=== PATIENT | female | born 1985 | race Two or more races ===

== ENCOUNTER 2025-01-24 05:43 | Emergency (ER) | payer MEDICAID, OTHER ==
[~2025-01-24] VITALS: Ht 162.6 cm; Wt 66.0 kg
--- NOTE | 2025-01-24 06:48 | ED.PDOC ---
History of Present Illness HPI Comments A 31-YEAR-OLD FEMALE WITH A PRIOR PROCEDURE DONE APPOINTMENT [facility] PRESENTS TO THE ED WITH A C/C OF ABNORMAL VAGINAL BLEEDING. PATIENT STATES THAT SHE WAS APPROXIMATELY 3 WEEKS BEFORE RECEIVING HER PROCEDURE, AND NOTES THAT HER ABNORMAL VAGINAL BLEEDING STARTED YESTERDAY AND NOTES A RUNNING THROUGH PROXIMALLY 7 PADS AND PASSING BLOOD CLOTS WITHIN THAT TIME FRAME. PATIENT NOTES THAT SHE IS NO LONGER BLEEDING TODAY, WHICH WAS NOTES THAT SHE WANTED TO MAKE SURE EVERYTHING WAS UNREMARKABLE. PATIENT DENIES ANY PAIN, DYSURIA, PYURIA, HEADACHE, ABDOMINAL PAIN, NAUSEA, VOMITING, DIARRHEA, OR ANY OTHER ASSOCIATED SYMPTOMS, MODIFIERS AT THIS TIME. Chief Complaint: Vaginal Bleed Time Seen by MD: 06:44 Reviewed Notes: Nurses Notes, Medications, Allergies Allergies: Coded Allergies: NO KNOWN ALLERGIES (Unverified , 01/24/25) Information Source: Patient Mode of Arrival: Ambulatory Severity: Moderate Timing: Weeks Duration: Intermittent Prehospital treatment: None Medication Refill: For: Other (VAGINAL BLEEDING POST . 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 History Family History Family History: Reviewed,noncontributory to illness Social History Smoker: Non-Smoker Alcohol: Denies ETOH Use Drugs: Denies Drug Use Lives In: Home Constitutional: denies: chills, diaphoresis, fatigue, fever, malaise, sweats, weakness, others EENTM: denies: blurred vision, double vision, ear bleeding, ear discharge, ear drainage, ear pain, ear ringing, eye pain, eye redness, hearing loss, mouth pain, mouth swelling, nasal discharge, nose bleeding, nose congestion, nose pain, photophobia, tearing, throat pain, throat swelling, voice changes, others Respiratory: denies: cough, hemoptysis, orthopnea, SOB at rest, shortness of breath, SOB with excertion, stridor, wheezing, others Cardiovascular: denies: chest pain, dizzy spells, diaphoresis, Dyspnea on exertion, edema, irregular heart beat, left arm pain, lightheadedness, palpitations, PND, syncope, others Gastrointestinal: denies: abdomen distended, abdominal pain, blood streaked bowels, constipated, diarrhea, dysphagia, difficulty swallowing, hematemesis, melena, nausea, poor appetite, poor fluid intake, rectal bleeding, rectal pain, vomiting, others Genitourinary: reports: abnormal vagina bleeding; denies: burning, dyspareunia, dysuria, flank pain, frequency, hematuria, incontinence, pain, , vagina discharge, urgency, others Neurological: denies: dizziness, fainting, headache, left sided numbness, left sided weakness, numbness, paresthesia, pre-existing deficit, right sided numbness, right sided weakness, seizure, speech problems, tingling, tremors, weakness, others Musculoskeletal: denies: back pain, gout, joint pain, joint swelling, muscle pain, muscle stiffness, neck pain, others Integumetry: denies: bruises, change in color, change in hair/nails, dryness, laceration, lesions, lumps, rash, wounds, others Allergic/Immunocompromised: denies: Difficulty Healing, Frequent Infections, Hives, Itching, others Hematologic/Lymphatic: denies: anemia, blood clots, easy bleeding, easy bruising, swollen glands, others Endocrine: denies: excessive hunger, excessive sweating, excessive thirst, excessive urination, flushing, intolerance to cold, intolerance to heat, unexplained weight gain, unexplained weight loss, others Psychiatric: denies: anxiety, bipolar disorder, depression, hopeless, panic disorder, schizophrenia, sleepless, suicidal, others All Other Systems: Reviewed and Negative Physical Exam General Appearance: No Apparent Distress, Normal HEENT: Normal ENT Inspection, PERRL/EOMI, Pharynx Normal, TMs Normal Neck: Full Range of Motion, Non-Tender, Normal, Normal Inspection Respiratory: Chest Non-Tender, Lungs Clear, No Accessory Muscle Use, No Respiratory Distress, Normal Breath Sounds Cardiovascular: No Edema, No JVD, No Murmur, No Gallop, Normal Peripheral Pulses, Regular Rate/Rhythm Breast Exam: Deferred Gastrointestinal: No Organomegaly, Non Tender, No Pulsatile Mass, Normal Bowel Sounds, Soft Genitalia: Deferred Pelvic: Normal External Exam, Other (MILD VAGINAL SPOTTING, NO VAGINAL BLEEDING AND BLOOD CLOTS. 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 Was a procedure done?: Yes Sedation Sedation?: No Pelvic Exam Vaginal Discharge: None Vaginal Lesions: None Vaginal Mass: None Bleeding Quality: Bright Red Cervix: os closed Other Procedure Informed consent obtained: No Risks, benefits, and alternati: Yes Differential Dx Considerations may include: POSSIBLE , , ABNORMAL VAGINAL BLEEDING, VAGINITIS, UTI, POC X-Ray, Labs, Meds, VS Vital Signs Date Time Temp Pulse Resp B/P (MAP) Pulse Ox O2 Delivery O2 Flow Rate FiO2 01/24/25 09:53 69 18 100 Room Air 01/24/25 09:53 99.2 69 18 106/70 (82) 100 99.2 01/24/25 05:47 97.7 78 18 123/84 100 97.7 Lab Test 01/24/25 06:43 01/24/25 06:35 Range/Units White Blood Count 5.2 4.4-10.8 10^3/uL Red Blood Count 4.42 4.0-5.20 10^6/uL Hemoglobin 12.3 12.2-16.2 g/dL Hematocrit 37.2 36.0-46.0 % Mean Corpuscular Volume 84.3 80.0-100.0 fL Mean Corpuscular Hemoglobin 27.9 L 28.0-32.0 pg Mean Corpuscular Hemoglobin Concent 33.1 32.0-36.0 g/dL Red Cell Distribution Width 19.5 H 11.8-14.3 % Platelet Count 274 140-450 10^3/uL Mean Platelet Volume 8.1 6.9-10.8 fL Neutrophils (%) (Auto) 54.5 37.0-80.0 % Lymphocytes (%) (Auto) 36.2 10.0-50.0 % Monocytes (%) (Auto) 7.0 0.0-12.0 % Eosinophils (%) (Auto) 1.6 0.0-7.0 % Basophils (%) (Auto) 0.7 0.0-2.0 % Neutrophils # (Auto) 2.8 1.6-8.6 10 ^3/uL Lymphocytes # (Auto) 1.9 0.4-5.4 10 ^3/uL Monocytes # (Auto) 0.4 0-1.3 10 ^3/uL Eosinophils # (Auto) 0.1 0-0.8 10 ^3/uL Basophils # (Auto) 0 0-0.2 10 ^3/uL Nucleated Red Blood Cells 0.0 % Sodium Level 141 136-145 mmol/L Potassium Level 3.8 3.5-5.1 mmol/L Chloride Level 107 98-107 mmol/L Carbon Dioxide Level 25 20-31 mmol/L Anion Gap 9 5-15 Blood Urea Nitrogen 6 L 9-23 mg/dL Creatinine 0.73 0.550-1.02 mg/dL Glomerular Filtration Rate Calc 108 >90 mL/min BUN/Creatinine Ratio 8.2 L 10.0-20.0 Serum Glucose 92 74-106 mg/dL Calcium Level 9.3 8.7-10.4 mg/dL Beta HCG, Quantitative 39150.0 H 1.5-4.2 mIU/mL Urine Color Yellow Yellow Urine Clarity Turbid H Clear Urine pH 5.5 5.0-9.0 Urine Specific [place] 1.026 1.001-1.035 Urine Protein Negative Negative Urine Ketones Negative Negative Urine Blood 2+ H Negative /uL Urine Nitrite Negative Negative Urine Bilirubin Negative Negative Urine Urobilinogen Normal Negative mg/dL Urine Leukocyte Esterase Negative Negative /uL Urine RBC 1 0 - 4 /hpf Urine Microscopic WBC 1 0-5 /HPF Urine Squamous Epithelial Cells Many <5 /hpf Urine Bacteria Few H None Seen /hpf Urine Mucus Few None Seen Urine Glucose Normal Normal mg/dL PATIENT: HARRIETT RAMIREZ ACCT: [id number] UNIT: [id number] : 1985 LOC: ER ROOM / BED: / AGE / SEX: 39 / F ADM STATUS: REG ER SERVICE [id number] ORDERING PHYSICIAN: RAYMOND MARINO PROCEDURE(s): OBTVG - OB TRANS VAGINAL US REASON: MOLAR PREG ORDER NUMBER(s): [id number], ACCESSION NUMBER(s): [id number] OB ULTRASOUND <14 WEEKS: HISTORY: Bleeding TECHNIQUE: Multiple real-time grayscale sonographic images of the pelvis with duplex Doppler color flow, spectral and M-mode analysis. TRANSDUCERS: Transabdominal and transvaginal COMPARISON: None FINDINGS: The uterus measures 9.4 x 5.7 x 6.9 cm The cervix is not visualized Right ovary measures 3.9 x 2.1 x 2.9 cm with normal Doppler color flow. Left ovary measures 3.7 x 1.8 x 2.9 cm with normal Doppler color flow. No intrauterine is visualized. Endometrium is thickened with cystic spaces measuring 1.6 cm demonstrating some vascularity. IMPRESSION: No intrauterine is visualized at this time. Nonspecific thickening of the endometrium with cystic spaces and some vascularity. Findings may represent retained products of conception or endometrial hyperplasia. Clinical correlation advised. ENT: HARRIETT RAMIREZ ACCT: [id number] UNIT: [id number] : 1985 LOC: ER ROOM / BED: / AGE / SEX: 39 / F ADM STATUS: REG ER SERVICE [id number] ORDERING PHYSICIAN: RAYMOND MARINO PROCEDURE(s): OB4US - OB ULTRASOUND COMP LESS 14WKS REASON: VAGINAL BLEEDING POST 3 WEEKS AGO ORDER NUMBER(s): [id number], ACCESSION NUMBER(s): [id number] OB ULTRASOUND <14 WEEKS: HISTORY: Bleeding TECHNIQUE: Multiple real-time grayscale sonographic images of the pelvis with duplex Doppler color flow, spectral and M-mode analysis. TRANSDUCERS: Transabdominal and transvaginal COMPARISON: None FINDINGS: The uterus measures 9.4 x 5.7 x 6.9 cm The cervix is not visualized Right ovary measures 3.9 x 2.1 x 2.9 cm with normal Doppler color flow. Left ovary measures 3.7 x 1.8 x 2.9 cm with normal Doppler color flow. No intrauterine is visualized. Endometrium is thickened with cystic spaces measuring 1.6 cm demonstrating some vascularity. IMPRESSION: No intrauterine is visualized at this time. Nonspecific thickening of the endometrium with cystic spaces and some vascularity. Findings may represent retained products of conception or endometrial hyperplasia. Clinical correlation advised. X-Ray, Labs, Meds, VS Comment EXTERNAL MEDICAL RECORDS REVIEWED: [NONE] INDEPENDENT HISTORIANS: [NONE] SOCIAL DETERMINANTS OF HEALTH: [NONE] LABS ORDERED: CBC, BMP, HCG BETA QUANT, URINARY ANALYSIS, ORDERED AND PENDING: REVIEWED AND INTERPRETED RESULTS: BETA-HC IMAGING ORDERED: OB<14 WEEKS TREATMENTS ORDERED: CYTOTEC 800MCG INTRAVAGINAL PROCEDURES PERFORMED: NONE CRITICAL CARE TIME: NONE I HAVE DISCUSSED THE PATIENT WITH THE ATTENDING PHYSICIAN AND HE AGREES WITH THE PATIENT'S PLAN OF CARE AND DISPOSITION. BASED ON HISTORY OF PRESENT ILLNESS, AND PHYSICAL EXAM, PATIENT WILL BE DISCHARGED HOME. PATIENT'S FINDINGS WERE CONSULTED BY OBGYN DR. GARCIA AND ADVISED TO GIVE PATIENT CYTOTEC 800 MCG INTRAVAGINALLY TONIGHT AND TO COME BACK TO [facility] IN 48 HOURS FOR RE-EVALUATION AND TO REPEAT BETA QUANT HCG. 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 GARCIA AND SHE ADVISED TO GIVE PATIENT CYTOTEC 800 MCG INTRAVAGINALLY TONIGHT AND TO COME BACK TO [facility] IN 48 HOURS FOR RE-EVALUATION AND TO REPEAT BETA QUANT HCG.) Patient Education/Counseling: Diagnosis, Treatment, Need For Follow Up Family Education/Counseling: Diagnosis, Treatment, Need For Follow Up, No Family Present Medical Screening: No EMC Exist At This Time SEPSIS Sepsis Screen Date sepsis recognized/suspect: Jan 24, 2025 Time Sepsis recognized/suspect: 0551 Recent Procedure: No On Antibiotic Therapy: No Respiratory Rate >20: No Heart Rate >90: No Temp<36 C (96.8 F) or >38.3 C: No SBP <90 or MAP <65 mmHG: No New Acute Mental Status Change: No Is the patient on CPAP, BIPAP,: No Physician Orders Ob Ultrasound Comp Less 14wks (01/24/25 07:44) Ob Trans Vaginal Us (01/24/25 08:21) Vital Signs Date Time Temp Pulse Resp B/P (MAP) Pulse Ox O2 Delivery O2 Flow Rate FiO2 01/24/25 09:53 69 18 100 Room Air 01/24/25 09:53 99.2 69 18 106/70 (82) 100 99.2 01/24/25 05:47 97.7 78 18 123/84 100 97.7 Laboratory Tests Test 01/24/25 06:43 White Blood Count 5.2 10^3/uL (4.4-10.8) Departure 1 Departure Time of Disposition: 09:20 Impression: Primary Impression: Vaginal spotting Additional Impression: Incomplete Disposition: HOME / SELF CARE / HOMELESS Condition: Stable Additional Instructions: FOLLOW-UP WITH ER IN 2 DAYS. TAKE MEDICATIONS PRESCRIBED. RETURN TO ED FOR ANY NEW OR WORSENING SYMPTOMS KATINA. Discharged With: Self, Spouse Critical Care Note Critical Care Time?: No Stability Stability form required: No Heart Score Heart Score: Heart Score Response (Comments) Value History N/A 0 EKG N/A 0 Age N/A 0 Risk Factors N/A 0 Troponin N/A 0 Total 0 I personally scribed for NEDYUSRA JohnA PA ([email or web address]) on 01/24/25 at 06:48. Electronically submitted by John Schneider ([email or web address]). I personally scribed for NEDYUSRAA PA ([email or web address]) on 01/24/25 at 08:45. Electronically submitted by John Schneider ([email or web address]). I personally scribed for NEDYINXIA PA ([email or web address]) on 01/24/25 at 09:06. Electronically submitted by John Schneider ([email or web address]). I personally scribed for NED,YINXIA PA ([email or web address]) on 01/24/25 at 09:09. Electronically submitted by John Schneider ([email or web address]). I personally scribed for NEDYINXIA PA ([email or web address]) on 01/24/25 at 09:12. Electronically submitted by John Schneider ([email or web address]). I personally scribed for NED,YINXIA PA ([email or web address]) on 01/24/25 at 09:35. Electronically submitted by John Schneider ([email or web address]). YUSRA MARINOA PA Jan 24, 2025 06:48
[2025-01-24 07:15] LABS: Urine Protein, UAD Negative (Negative)
[2025-01-24 07:17] LABS: Hematocrit 37.2 % (36.0-46.0); Hemoglobin 12.3 g/dL (12.2-16.2); Mean Corpuscular Hemoglobin 27.9 pg (28.0-32.0); Mean Corpuscular Volume 84.3 fL (80.0-100.0); Nucleated Red Blood Cells % 0.0 %
[2025-01-24 07:22] LABS: Anion Gap 9 (5-15); Carbon Dioxide 25 mmol/L (20-31); Chloride 107 mmol/L (98-107); Potassium 3.8 mmol/L (3.5-5.1); Sodium 141 mmol/L (136-145)
[2025-01-24 07:23] LABS: Calcium 9.3 mg/dL (8.7-10.4)
[2025-01-24 07:28] LABS: BUN/Creatinine Ratio 8.2 (10.0-20.0); Glucose 92 mg/dL (74-106)
[2025-01-24 07:31] LABS: Blood Urea Nitrogen 6 mg/dL (9-23)
--- NOTE | 2025-01-24 08:38 | DVH ---
OB ULTRASOUND <14 WEEKS: HISTORY: Bleeding TECHNIQUE: Multiple real-time grayscale sonographic images of the pelvis with duplex Doppler color f low, spectral and M-mode analysis. TRANSDUCERS: Transabdominal and transvaginal COMPARISON: None FINDINGS: The uterus measures 9.4 x 5.7 x 6.9 cm The cervix is not visualized Right ovary measures 3.9 x 2.1 x 2.9 cm with normal Doppler color flow. Left ovary measures 3.7 x 1.8 x 2.9 cm with normal Doppler color flow. No intrauterine is visualized. Endometrium is thickened with cystic spaces measuring 1.6 cm demonstrating some vascularity. IMPRESSION: No intrauterine is visualized at this time. Nonspecific thickening of the endometrium with cystic spaces and some vascularity. Findings may repr esent retained products of conception or endometrial hyperplasia. Clinical correlation advised.
[2025-01-24 09:53] VITALS: BP 106/70; PULSE 69; RESP 18; TEMP 99.2; O2SAT 100
== END 2025-01-24 09:54 | disposition home or self-care (01) ==
LOC: ER 05:43
DX: O03.4 Incomplete spontaneous abortion without complication (principal); O02.0 Blighted ovum and nonhydatidiform mole; Z3A.00 Weeks of gestation of pregnancy not specified
CPT/HCPCS: 36415; 76801; 76817; 80048; 81001; 84702; 85025